=== PATIENT | male | born 1995 | race Two or more races ===

== ENCOUNTER 2020-07-28 09:11 | Inpatient (IN) | payer MEDICAID ==
[~2020-07-28] VITALS: Ht 175.3 cm; Wt 90.9 kg
[2020-07-28 10:46] LABS: COVID AG,FIA SOURCE NASOPHARYNGEAL
[2020-07-28 11:03] LABS: BASOPHILS % (AUTO) 0.4 % (0.0-2.0); EOSINOPHILS % (AUTO) 0.7 % (1.0-6.0); HEMATOCRIT 39.6 % (41-53); HEMOGLOBIN 12.7 g/dL (13.5-17.5); LYMPHOCYTES % (AUTO) 26.5 % (22.0-44.0); MEAN CORPUSCULAR HEMOGLOBIN 27.3 pg (26.0-34.0); MEAN CORPUSCULAR HGB CONC 32.1 G/dL (31.0-37.0); MEAN CORPUSCULAR VOLUME 85 fL (80-100); MONOCYTES # (AUTO) 0.7 K/uL (0.1-1.0); MONOCYTES % (AUTO) 19.7 % (2.0-9.0); NEUTROPHILS # (AUTO) 1.9 K/uL (1.8-7.7); NEUTROPHILS % (AUTO) 52.7 % (40.0-70.0); PLATELET COUNT (AUTO) 124 K/uL (150-450); RED BLOOD CELL COUNT(AUTO) 4.67 MIL/uL (4.50-5.90); RED CELL DISTRIBUTION WIDTH 14.5 % (11.5-14.5)
[2020-07-28 11:18] LABS: ANION GAP 5 mmol/L (8-16); CALCIUM, TOTAL 8.3 mg/dL (8.8-10.5); CARBON DIOXIDE 30 mmol/L (22-29); CHLORIDE 98 mmol/L (98-107); CREATININE 0.94 mg/dL (0.60-1.30); GLOMERULAR FILTR. RATE CALC > 60 mL/min (>60); GLUCOSE,RANDOM 80 mg/dL (70-110); SODIUM SERUM 133 mmol/L (136-145); UREA NITROGEN, BLOOD 12 mg/dL (7-18)
[2020-07-28 11:27] LABS: ALANINE AMINOTRANSFERASE 29 U/L (12-78); ALBUMIN 3.4 g/dL (3.4-5.0); ALKALINE PHOSPHATASE 51 U/L (46-116); ASPARTATE AMINOTRANSFERASE 24 U/L (15-37); BILIRUBIN,TOTAL 0.6 mg/dL (0.1-1.0); TOTAL PROTEIN, SERUM 6.7 g/dL (6.4-8.2)
[2020-07-28] MEDS ORDERED: ACETAMINOPHEN 325 MG TABLET PO PRN ×2 (12:30→14:30)
[2020-07-28] MEDS ORDERED: 0.9% SODIUM CHLORIDE 10 ML SYRINGE IVP PRN (12:30)
[2020-07-28] MEDS ORDERED: PETROLATUM,WHITE 28 GM JELLY TP PRN (14:30)
[2020-07-28] MEDS ORDERED: MAGNESIUM HYDROXIDE SUSPENSION 30 ML UDCUP PO PRN (14:30)
[2020-07-28] MEDS ORDERED: MAG HYDROX/AL HYDROX/SIMETH ES 30 ML SUSPENSION UDCUP PO PRN (14:30)
[2020-07-28] MEDS ORDERED: ONDANSETRON HCL 4 MG TABLET PO PRN (14:30)
[2020-07-28] MEDS ORDERED: CloNIDine HCL 0.1 MG TABLET PO PRN (14:30)
[2020-07-28] MEDS ORDERED: DOCUSATE SODIUM 100 MG CAPSULE PO PRN (14:30)
[2020-07-28] MEDS ORDERED: GuaiFENesin/D-METHORPHAN [SUGAR-FREE] 200-20MG/10 ML SYRUP UDCUP PO PRN (14:30)
[2020-07-28] MEDS ORDERED: LOPERAMIDE HCL 2 MG CAPSULE PO PRN (14:30)
[2020-07-28] MEDS ORDERED: NICOTINE 14 MG/24 HOUR PATCH TD PRN (14:30)
[2020-07-28] MEDS ORDERED: ALBUTEROL SULFATE HFA 90 MCG/PUFF 8 GM INHALER IH PRN (14:30)
[2020-07-28 19:25] VITALS: BP 126/74
[2020-07-28 19:25] LABS: FERRITIN 221 ng/mL (26-388)
[2020-07-28 19:42] LABS: AMPHET/METH SCREEN,URINE POSITIVE (NEGATIVE); BARBITURATE SCREEN, URINE NEGATIVE (NEGATIVE); BENZODIAZEPINES SCREEN,URINE NEGATIVE (NEGATIVE); CANNABINOID SCREEN,URINE POSITIVE (NEGATIVE); COCAINE SCREEN,URINE NEGATIVE (NEGATIVE); METHADONE SCREEN, URINE NEGATIVE (NEGATIVE); OPIATE SCREEN,URINE POSITIVE (NEGATIVE)
[2020-07-28 20:09] LABS: PHENCYCLIDINE SCREEN,URINE NEGATIVE (NEGATIVE)
[2020-07-28 23:23] VITALS: BP 130/74
[2020-07-29 04:44] VITALS: BP 120/66
[2020-07-29 07:52] VITALS: BP 119/59
[2020-07-29] MEDS: CITALOPRAM HYDROBROMIDE 20 MG TABLET PO SCH (13:34)
[2020-07-29 15:06] VITALS: BP 124/72
[2020-07-29 20:00] VITALS: BP 129/70
[2020-07-29] MEDS: HALOPERIDOL 5 MG TABLET PO SCH (20:39)
[2020-07-30] MEDS: IBUPROFEN 400 MG TABLET PO PRN (01:41)
[2020-07-30 05:30] VITALS: BP 116/76
[2020-07-30 08:20] VITALS: BP 126/71
[2020-07-30] MEDS: CITALOPRAM HYDROBROMIDE 20 MG TABLET PO SCH (08:43)
[2020-07-30 12:05] VITALS: BP 117/61
[2020-07-30 16:00] VITALS: BP 120/71
[2020-07-30 20:09] VITALS: BP 129/71
[2020-07-30] MEDS: HALOPERIDOL 5 MG TABLET PO SCH (22:08)
[2020-07-31 04:30] VITALS: BP 104/57
[2020-07-31 08:06] VITALS: BP 121/70
[2020-07-31] MEDS: CITALOPRAM HYDROBROMIDE 20 MG TABLET PO SCH (09:19)
[2020-07-31 13:43] VITALS: BP 110/57
[2020-07-31 16:18] VITALS: BP 118/77
[2020-07-31 20:15] VITALS: BP 122/78
[2020-07-31] MEDS: HALOPERIDOL 5 MG TABLET PO SCH (20:31)
[2020-07-31 23:30] VITALS: BP 109/70
[2020-08-01 04:35] VITALS: BP 112/72
[2020-08-01 08:15] VITALS: BP 114/69
[2020-08-01] MEDS ORDERED: CITA-144 PO (08:30)
[2020-08-01] MEDS ORDERED: HALO5TAB2 PO (08:30)
[2020-08-01] MEDS: CITALOPRAM HYDROBROMIDE 20 MG TABLET PO SCH ×2 (08:34→08:40)
[2020-08-01 11:09] VITALS: BP 134/87
[2020-08-01] MEDS ORDERED: SODIUM CHLORIDE 0.9% 100 ML ONE (11:18)
[2020-08-01] MEDS ORDERED: IOVERSOL 350 MG/ML 150 ML VIAL ONE (11:18)
[2020-08-01] MEDS ORDERED: DiphenhydrAMINE HCL 50 MG/ML VIAL IVP STA (11:42)
[2020-08-01] MEDS ORDERED: LORazepam 2 MG/ML VIAL IVP ONE (11:45)
[2020-08-01 15:41] VITALS: BP 101/64
[2020-08-01 17:25] LABS: GLUCOMETER DEV NAME(LOC) 6N.2; GLUCOSE,POINT OF CARE 84 MG/DL (70-110)
[2020-08-01 20:20] VITALS: BP 95/65
[2020-08-01] MEDS: HALOPERIDOL 5 MG TABLET PO SCH (21:35)
[2020-08-02 00:07] VITALS: BP 112/70
[2020-08-02 04:30] VITALS: BP 108/73
[2020-08-02 08:00] VITALS: BP 109/71
[2020-08-02] MEDS: CITALOPRAM HYDROBROMIDE 20 MG TABLET PO SCH (08:54)
[2020-08-02 16:31] VITALS: BP 112/60
[2020-08-02 19:35] VITALS: BP 114/65
[2020-08-02] MEDS: HALOPERIDOL 5 MG TABLET PO SCH (20:47)
[2020-08-02] MEDS: IBUPROFEN 400 MG TABLET PO PRN (21:30)
[2020-08-02 22:26] VITALS: BP 132/76
[2020-08-03 04:00] VITALS: BP 98/57
[2020-08-03 07:19] VITALS: BP 109/56
[2020-08-03] MEDS: CITALOPRAM HYDROBROMIDE 20 MG TABLET PO SCH ×2 (08:34→08:36)
== END 2020-08-03 14:38 | disposition left against medical advice (07) | DRG 137 ==
LOC: EMS 09:11 → 6N 13:23
PROVIDERS: ADMIT Internal Medicine; ATTEND Internal Medicine
DX: U07.1 COVID-19 (principal); D72.819 Decreased white blood cell count, unspecified; D64.9 Anemia, unspecified; D69.6 Thrombocytopenia, unspecified; F15.90 Other stimulant use, unspecified, uncomplicated; R45.851 Suicidal ideations; F32.9 Major depressive disorder, single episode, unspecified; M24.541 Contracture, right hand
CPT/HCPCS: 70496; 82728; 87426; G0480; J7050; 36415-L1; 36415-TC; 70450; 70450-TC; 71045-TC; U0003